=== PATIENT | female | born 1995 | race Caucasian/White ===

== ENCOUNTER → 2019-02-14 15:51 | Outpatient (CLI) | payer OTHER, SELFPAY ==
--- NOTE | 2019-02-14 15:54 | MR_ITS ---
MR hand LT wo con ORDERING PHYSICIAN : Vi Hanley MD PATIENT AGE: 23 years GENDER: Female HISTORY:ITS.REASON: injury to tendon COMPARISON: 02/08/2019. TECHNIQUE: Routine multiplanar and multiecho images. FINDINGS: Signal from the osseous marrow elements appear to be intact. The low signal of the cortical areas appear intact. There is a irregular oblique area of increased T2 signal likely some edema from the traumatic injury which begins posteriorly just posterior to the distal fifth metacarpal bone and this extends ventrally and laterally to the ventral soft tissues between the level of the distal fourth and fifth metacarpal bones. The low signal of the various tendons including the flexor and extensor tendons appear intact. The low signal of the collateral ligaments at the MCP joints appear intact. IMPRESSION: Soft tissue edema between the distal fourth and fifth metacarpal bones from the trauma is present. No definite osseous, tendon or ligamentous abnormality.
== END ==
PROVIDERS: Visit Provider Orthopaedic Surgery
DX: S61.412A Laceration without foreign body of left hand, initial encounter (principal); S66.922A Laceration of unspecified muscle, fascia and tendon at wrist and hand level, left hand, initial encounter
CPT/HCPCS: 73218